=== PATIENT | male | born 1980 | race Caucasian/White ===

== ENCOUNTER 2018-02-23 04:03 | Emergency (ER) | payer OTHER ==
[~2018-02-23] VITALS: Ht 182.9 cm; Wt 81.7 kg
[2018-02-23] MEDS ORDERED: CYMBALTA60 MG (04:46)
[2018-02-23] MEDS ORDERED: DESYREL150 MG (04:46)
[2018-02-23] MEDS ORDERED: NEURO (04:48)
[2018-02-23 04:51] VITALS: BP 117/69
== END 2018-02-23 04:51 | disposition left against medical advice (07) ==
LOC: M.ERS 04:03
DX: F10.129 Alcohol abuse with intoxication, unspecified (principal); F32.9 Major depressive disorder, single episode, unspecified; G62.9 Polyneuropathy, unspecified; Z88.2 Allergy status to sulfonamides